=== PATIENT | male | born 1985 | race African-American/Black ===

== ENCOUNTER 2018-12-20 14:10 | Emergency (ER) | payer MEDICAID ==
[~2018-12-20] VITALS: Ht 170.2 cm; Wt 72.6 kg
[2018-12-20 14:24] VITALS: BP 137/83
--- NOTE | 2018-12-20 14:24 | NUR ---
ED Nurse Note: pt walked in due to pain in the anus started 6 days ago. pt stated he started to feel it when wh went [facility] of the [facility] last thursday and was not eating well. seen by silivna Flores. noted to have inflamation in the anus. will continue to monitor.
--- NOTE | 2018-12-20 14:26 | Emergency Room Report ---
History of Present Illness General Chief Complaint: Pain Source: Patient Present Illness HPI 33-year-old male with no sniffing past medical history here complaining of hemorrhoid flareup that has been lasting for the past 6 days. Patient is rating his pain 5 out of 10 without radiation denies any rectal bleeding. Patient reports that he does not have a very good diet does not consume lots of fiber. He had a diet consisting of meat and carbohydrates. Complains of frequent constipation and straining. Denies abdominal pain, nausea vomiting, pus drainage, no bleeding from the site of his hemorrhoid. Patient reports that he has had hemorrhoids in the past however has never seen a specialist for them. Denies recent sexual activity, penile discharge, urinary frequency, chest pain, shortness of breath, palpitation, and other associated symptoms. Allergies: Coded Allergies: No Known Allergies (Unverified , 12/20/18) Patient History Past Medical History: see triage record Past Surgical History: none Pertinent Family History: unable to obtain Social History: Reports: smoking, alcohol use Immunizations: UTD Reviewed Nursing Documentation: PMH: Agreed; PSxH: Agreed Nursing Documentation-PMH Past Medical History: No Stated History Review of Systems All Other Systems: negative except mentioned in HPI Physical Exam Vital Signs Date Time Temp Pulse Resp B/P (MAP) Pulse Ox O2 Delivery O2 Flow Rate FiO2 12/20/18 14:14 98.1 72 17 137/83 (101) 99 Room Air Sp02 EP Interpretation: reviewed, normal General Appearance: normal inspection, well appearing, no apparent distress, alert Head: normocephalic, atraumatic Eyes: bilateral eye normal inspection, bilateral eye PERRL ENT: normal ENT inspection, hearing grossly normal, normal pharynx Neck: normal inspection, full range of motion, supple Respiratory: normal inspection, chest non-tender, no respiratory distress, no wheezing Cardiovascular #1: normal inspection, regular rate, rhythm, no edema, no murmur Gastrointestinal: normal inspection, non tender, soft, no organomegaly Rectal: hemorrhoids - External nonthrombosed hemorrhoid Genitourinary: no CVA tenderness Musculoskeletal: normal inspection, back normal Neurologic: normal inspection, alert, oriented x3, responsive Psychiatric: normal inspection, judgement/insight normal, memory normal Skin: no rash, palpation normal, normal color Lymphatic: normal inspection, no adenopathy Medical Decision Making PA Attestation All diagnoses and treatment plans were reviewed and discussed with my supervising physician Dr. Gomez Diagnostic Impression: Primary Impression: External hemorrhoids ER Course 33-year-old male with no sniffing past medical history here complaining of hemorrhoid flareup that has been lasting for the past 6 days. Patient is rating his pain 5 out of 10 without radiation denies any rectal bleeding. Patient reports that he does not have a very good diet does not consume lots of fiber. He had a diet consisting of meat and carbohydrates. Complains of frequent constipation and straining. Denies abdominal pain, nausea vomiting, pus drainage, no bleeding from the site of his hemorrhoid. Patient reports that he has had hemorrhoids in the past however has never seen a specialist for them. Denies recent sexual activity, penile discharge, urinary frequency, chest pain, shortness of breath, palpitation, and other associated symptoms. Ddx considered but are not limited to: appendicitis, cholycisitis, gastritis, thrombosed external hemorrhoids, internal hemorrhoids, external hemorrhoids Vital signs: are WNL, pt. is afebrile H&PE are most consistent with: Nonthrombosed external hemorrhoids ORDERS: Anusol rectal cream, prednisone, ibuprofen, Colace ED INTERVENTIONS: None required at this time. DISCHARGE: At this time pt. is stable for d/c to home. Will provide printed patient care instructions, and any necessary prescriptions. Care plan and follow up instructions have been discussed with the patient prior to discharge. 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 Last Vital Signs Date Time Temp Pulse Resp B/P (MAP) Pulse Ox O2 Delivery O2 Flow Rate FiO2 12/20/18 14:14 98.1 72 17 137/83 (101) 99 Room Air Disposition: HOME, SELF-CARE Condition: Stable Scripts Ibuprofen* (MOTRIN*) 600 Mg Tablet 600 MG ORAL Q8H PRN for For Pain, #30 TAB 0 Refills Prov: Mark Gonzales 12/20/18 Prednisone* (PREDNISONE*) 10 Mg Tablet 10 MG ORAL BID for 5 Days, #10 TAB 0 Refills Prov: Mark Gonzales 12/20/18 Hydrocortisone Hc 2.5% Cream (ANUSOL-HC 2.5% CREAM) Y Cr 2 GM RC TID, #28 GM Prov: Mark Gonzales 12/20/18 Docusate Sodium* (COLACE*) 100 Mg Capsule 100 MG ORAL TWICE A DAY, #15 CAP Prov: Mark Gonzales 12/20/18 Patient Instructions: Hemorrhoids, [id number] Additional Instructions: Take medication as directed follow-up with your primary care provider for referral to feather curling machine operator if needed, using sitz bath helps with your symptoms. Increase fiber intake avoid red meat, dairy product rice and pasta for a few days. Mark Gonzales Dec 20, 2018 14:26
[2018-12-20] MEDS ORDERED: COLACE100 MG ORAL (14:28)
[2018-12-20] MEDS ORDERED: IBUPROFEN600 MG ORAL (14:28)
[2018-12-20] MEDS ORDERED: ANUSOL-HC30 GM RC (14:28)
[2018-12-20] MEDS ORDERED: PREDNISONE10 MG ORAL (14:28)
[2018-12-20 14:33] VITALS: BP 137/83
--- NOTE | 2018-12-20 14:33 | NUR ---
ER DISCHARGE NOTE: Patient is cleared to be discharged per ERMD, pt is aox4, on room air, with stable vital signs. pt was given dc and prescription instructions, pt was able to verbalize understanding, pt id band removed without complications. pt is able to ambulate with steady gait. pt took all belongings.
== END 2018-12-20 14:33 | disposition home or self-care (01) ==
LOC: EMR 14:22
DX: K64.4 Residual hemorrhoidal skin tags (principal); F17.200 Nicotine dependence, unspecified, uncomplicated
CPT/HCPCS: 99282

== ENCOUNTER 2019-02-14 21:42 | Emergency (ER) | payer MEDICAID ==
[~2019-02-14] VITALS: Ht 170.2 cm; Wt 76.7 kg
[~2019-02-14 21:42] MED LIST: ANUSOL-HC30 GM RC; COLACE100 MG ORAL; IBUPROFEN600 MG ORAL; PREDNISONE10 MG ORAL
[2019-02-14 21:45] VITALS: BP 131/86
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
[2019-02-14] MEDS ORDERED: IBUPROFEN600 MG ORAL (22:30)
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
--- NOTE | 2019-02-14 23:01 | NUR ---
ED Nurse Note: pt left for CT
--- NOTE | 2019-02-14 23:03 | NUR ---
ED Nurse Note: pt left for CT
--- NOTE | 2019-02-14 23:06 | NUR ---
ED Nurse Note: pt returned from CT
[2019-02-14 23:10] VITALS: BP 124/86
--- NOTE | 2019-02-14 23:46 | Diagnostic Imaging Report ---
Indications: Altered mental status Technique: Spiral acquisitions obtained through the brain. Angled axial and coronal 5 x 5 mm slices were reconstructed. Total dose length product 1424.79 mGycm. CTDI vol(s) 70.38 mGy. Dose reduction achieved using automated exposure control Comparison: None. Findings: No acute intracranial hemorrhage or edema. No mass effect nor midline shift. Normal hicks-white differentiation. Normal size ventricles and extra axial CSF spaces. This was orbits and sinuses are unremarkable. The calvarium is intact. Impression: Negative This agrees with the preliminary interpretation provided overnight by [employer] [facility]. The CT scanner at [facility] is accredited by the [employer] and the scans are performed using protocols designed to limit radiation exposure to as low as reasonably achievable to attain images of sufficient resolution adequate for diagnostic evaluation.
== END 2019-02-14 23:10 | disposition home or self-care (01) ==
LOC: EMR 22:00
DX: S09.90XA Unspecified injury of head, initial encounter (principal); V43.52XA Car driver injured in collision with other type car in traffic accident, initial encounter; Y92.410 Unspecified street and highway as the place of occurrence of the external cause
CPT/HCPCS: 70450; 99284

== ENCOUNTER 2019-09-07 09:40 | Emergency (ER) | payer MEDICAID ==
[~2019-09-07] VITALS: Ht 170.2 cm; Wt 77.1 kg
--- NOTE | 2019-09-07 09:57 | NUR ---
ED Nurse Note: pt ambulated to ed for std evaluation. pt complaints of itchiness x 1 week. VSS, afebrile on triage. Placed on bed. Dr. Viera at bedside.
[2019-09-07 10:00] VITALS: BP 137/88
[2019-09-07] MEDS ORDERED: Lidocaine 1% MPF 10mg/ml 5ml INJ ONE (10:00)
[2019-09-07] MEDS ORDERED: Azithromycin 250mg tab ORAL ONE (10:00)
--- NOTE | 2019-09-07 10:01 | Emergency Room Report ---
History of Present Illness General Chief Complaint: General Complaint Source: Patient Present Illness HPI 34-year-old male presents with possible exposure to STD patient wants treatment , asymptomatic, aggravating factors none no alleviating factors severity is nonexistent, patient presents for evaluation partner tested positive for trichomoniasis yesterday Allergies: Coded Allergies: No Known Allergies (Unverified , 12/20/18) COVID-19 Screening Contact w/high risk pt: No Recent Travel to affected area: No Experienced COVID-19 symptoms?: No Patient History Past Medical History: see triage record Reviewed Nursing Documentation: PMH: Agreed; PSxH: Agreed Nursing Documentation-PM Past Medical History: No Stated History Review of Systems All Other Systems: negative except mentioned in HPI Physical Exam Vital Signs Date Time Temp Pulse Resp B/P (MAP) Pulse Ox O2 Delivery O2 Flow Rate FiO2 09/07/19 09:47 97.9 58 17 137/88 (104) 99 Room Air General Appearance: well appearing, no apparent distress Head: normocephalic, atraumatic Eyes: bilateral eye PERRL, bilateral eye EOMI ENT: hearing grossly normal, normal voice Neck: full range of motion, supple Respiratory: no respiratory distress, speaking full sentences Neurologic: alert, normal gait Psychiatric: mood/affect normal Skin: no rash Medical Decision Making Diagnostic Impression: Primary Impression: Trichomoniasis ER Course 34-year-old male presents with exposure to possible multiple STDs, trichomoniasis, partner was positive for trichomoniasis will start patient on metronidazole additionally who will provide patient with ceftriaxone and azithromycin for prophylactic treatment for other STDs such as gonorrhea and chlamydia List of STD clinics were provided to patient Last Vital Signs Date Time Temp Pulse Resp B/P (MAP) Pulse Ox O2 Delivery O2 Flow Rate FiO2 09/07/19 09:47 97.9 58 17 137/88 (104) 99 Room Air Disposition: HOME, SELF-CARE Condition: Stable Scripts Metronidazole* (FLAGYL*) 500 Mg Tablet 500 MG ORAL BID for 7 Days, #14 TAB Prov: Wilton Viera MD 09/07/19 Referrals: [facility],REFERRING (PCP) Patient Instructions: Trichomoniasis Additional Instructions: The patient was provided with discharge instructions, notified to follow-up with a primary care doctor and or specialist in the next 24-48 hours, and to return to the ED if they have worsening of their symptoms. Please note that this report is being documented using [employer]ON technology. This can lead to erroneous entry secondary to incorrect interpretation by the dictating instrument. ABSOLUTELY NO DRINKING WHEN ON TREATMENT Wilton Viera MD Sep 07, 2019 10:01
[2019-09-07] MEDS ORDERED: METRONIDAZOLE500 MG ORAL (10:05)
[2019-09-07 10:14] VITALS: BP 137/88
--- NOTE | 2019-09-07 10:14 | NUR ---
ER DISCHARGE NOTE: Patient is cleared to be discharged per ERMD, pt is aox4, on room air, with stable vital signs. pt was given dc and prescription instructions, pt was able to verbalize understanding, pt id band removed. pt is able to ambulate with steady gait. pt took all belongings.
== END 2019-09-07 10:14 | disposition home or self-care (01) ==
LOC: EMR 09:55
DX: A59.9 Trichomoniasis, unspecified (principal)
CPT/HCPCS: 96372; 96374; J0696; Q0144; Z7502; 99284

== ENCOUNTER 2020-08-30 13:35 | Emergency (ER) | payer BC, MEDICAID ==
[~2020-08-30] VITALS: Ht 182.9 cm; Wt 81.6 kg
[~2020-08-30 13:35] MED LIST changes: +METRONIDAZOLE500 MG ORAL
--- NOTE | 2020-08-30 13:52 | NUR ---
pt arrives to ER with complaints of headache
[2020-08-30 13:53] VITALS: BP 136/83
--- NOTE | 2020-08-30 14:17 | Emergency Room Report ---
History of Present Illness General Chief Complaint: Headache Source: Patient Present Illness HPI Patient is a 35-year-old male denies any significant past medical history who presents to the ER complaining of mild generalized headache. Patient states that he was running around all day yesterday and did not have a chance to eat any food. He states that he woke up early this morning for work around 2 AM and had a mild generalized headache. 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 He states that he ate some soup and felt better. He states he now needs a return to work note. He does not want any work-up. He denies any dizziness, blurry vision, neck stiffness, slurred speech, chest pain, shortness of breath, cough, abdominal pain, nausea or vomiting. The headache was not sudden onset and not the worst headache of his life. It resolved with eating. 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: No COVID-19 Screening: Negative COVID-19 Patient History Reviewed Nursing Documentation: PMH: Agreed; PSxH: Agreed Nursing Documentation-PMH Hx Cardiac Problems: No Hx Hypertension: No Hx Pacemaker: No Hx Asthma: No Hx COPD: No Hx Diabetes: No Hx Cancer: No Hx Gastrointestinal Problems: No Hx Dialysis: No History Of Psychiatric Problem: No Hx Neurological Problems: No Hx Cerebrovascular Accident: No Hx Seizures: No Review of Systems All Other Systems: negative except mentioned in HPI Physical Exam Vital Signs Date Time Temp Pulse Resp B/P (MAP) Pulse Ox O2 Delivery O2 Flow Rate FiO2 08/30/20 13:49 98.2 72 18 136/83 (100) 96 Room Air Sp02 EP Interpretation: reviewed, normal General Appearance: no apparent distress, alert, GCS 15, non-toxic Head: normocephalic, atraumatic Eyes: bilateral eye normal inspection, bilateral eye PERRL ENT: hearing grossly normal, normal pharynx, no angioedema, normal voice Neck: full range of motion, supple/symm/no masses Respiratory: no respiratory distress, no accessory muscle use Cardiovascular #1: regular rate, rhythm Gastrointestinal: non tender, soft Rectal: deferred Musculoskeletal: normal range of motion, moves extm spontaneously Neurologic: motor strength/tone normal, quantity surveyor III-XII nml as tested, distal neuro normal, oriented x3 Psychiatric: no suicidal/homicidal ideation Skin: no rash Lymphatic: no adenopathy Medical Decision Making Diagnostic Impression: Primary Impression: Headache ER Course Patient declining any work-up in the emergency room as his headache already resolved. Patient asking for back to work note for tomorrow. After discussing risks and benefits of further diagnostics, treatment plans, as well as indications for and risks of admission, the patient is agreeable to being discharged home. I have explained that their evaluation and treatment in the emergency department today is an important step towards them achieving better health but that their evaluation today is not intended to replace further evaluation and treatment by a physician in their local clinic. I have explained that while the current findings suggest no immediate life threatening emergency they will require further evaluation and treatment by a physician of their choice in their area. They understand that it will be necessary for them to review the final reports of their ED visit with their clinic physician. We have reviewed indications for return to the Emergency Department. I have explained that additional time may need to pass and/or additional testing as an outpatient may be necessary before a definitive diagnosis can be made. They tell me they are willing to follow up as instructed within the timeframe I recommend. They appear to understand what we discussed. Additionally they understand that if they are unable to be seen by an outpatient physician they are welcome, and in fact should, return to the Emergency Department for a repeat evaluation. The patient is stable at time of discharge. Last Vital Signs Date Time Temp Pulse Resp B/P (MAP) Pulse Ox O2 Delivery O2 Flow Rate FiO2 08/30/20 13:53 98.2 18 136/83 96 Room Air 08/30/20 13:49 72 Disposition: HOME, SELF-CARE Condition: Stable Referrals: [facility] Departure Forms: Return to Work Return to Work in (Days): 1 Return to Work Date: Aug 31, 2020 Patient Instructions: General Headache Without Cause Additional Instructions: The patient was provided with discharge instructions, notified to follow-up with a primary care doctor and or specialist in the next 24-48 hours, and to return to the ED if they have worsening of their symptoms. Please note that this report is being documented using [employer] technology. This can lead to erroneous entry secondary to incorrect interpretation by the dictating instrument. Brittany Byrd M.D. Aug 30, 2020 14:17
[2020-08-30 14:37] VITALS: BP 136/83
== END 2020-08-30 15:21 | disposition home or self-care (01) ==
LOC: EMR 14:13
DX: R51.9 Headache, unspecified (principal)
CPT/HCPCS: 99281